=== PATIENT | male | born 1990 | race Caucasian/White ===

== ENCOUNTER 2020-09-03 07:45 | Emergency (ER) | payer SELFPAY ==
[2020-09-03 07:49] VITALS: BP 141/89; PULSE 82; RESP 18; TEMP 36.4; O2SAT 95; BMI 24.3
--- NOTE | 2020-09-03 07:55 | ED_ITS ---
HPI - Dental/Oral General: Chief complaint: Dental/Oral Stated complaint: facial swelling , dental pain Time Seen by Provider: 09/03/20 07:55 History of Present Illness: HPI Narrative: Patient is a 29-year-old male comes to the ED with dental pain. Pain started approximately 3 days ago. MD Complaint: tooth pain Location: Tooth # (13) Onset (ago): day(s) (3 days ago) Duration: constant Severity: moderate Severity scale (1-10): 8 Relieving factors: NSAIDs Exacerbating factors: chewing, cold and heat Context: history of dental caries and poor dental care Associated symptoms: Denies fever(s) or odynophagia Treatment prior to arrival: oral analgesic Review of Systems Const: Denies: fever(s), chills or fatigue Eyes: Denies: change in vision or eye discomfort ENMT: Reports: dental pain; Denies: throat pain, odynophagia, nasal discharge or nasal congestion Card: Denies: chest pain, palpitations, edema, swelling of feet/ankles, dyspnea on exertion or orthopnea Resp: Denies: dyspnea, productive cough or non-productive cough GI: Denies: abdominal pain, nausea, vomiting, diarrhea, constipation or hematochezia : Denies: flank pain, difficulty urinating, dysuria or hematuria Musc: Denies: neck pain, back pain or extremity swelling Skin/Breast: Denies: rash or new lesions Neuro: Denies: headache(s), numbness in extremities or weakness in extremities Physical Exam Const: COMMON NORMALS: no acute distress, patient oriented x3 and alert GENERAL APPEARANCE: cooperative and comfortable HENMT: COMMON NORMALS: normocephalic HEAD & SCALP: normocephalic FACE & SINUS: edema on the left maxilla (mild swelling) MOUTH: Normal oral and palatal mucosa present TEETH & GINGIVA: Yes caries (Patient has extensive dental decay throughout mouth.) and Yes poor dentition THROAT: posterior oropharynx normal and uvula midline Neck/C-Spine: COMMON NORMALS: supple GENERAL: Yes normal visual inspection Resp: COMMON NORMALS: normal respiratory effort, No retractions, No use of accessory muscles and clear to auscultation bilaterally AUSCULTATION: clear to auscultation bilaterally Cardio: COMMON NORMALS: regular rate, regular rhythm, S1 normal heart sound present, S2 normal heart sound present, No gallops present (Cardio), No clicks present (Cardio), No murmurs present (Cardio) and Peripheral pulses 2+ through out RATE: regular rate RHYTHM: regular rhythm HEART SOUNDS: S1 normal heart sound present and S2 normal heart sound present PERIPHERAL PULSES: Peripheral pulses 2+ throughout GI: COMMON NORMALS: Normal to inspection, nondistended, normoactive bowel sounds present, Soft to palpation, non-tender and no masses PALPATION: Yes Soft to palpation : COMMON NORMALS: Yes no CVA tenderness BLADDER/KIDNEY EXAM: Yes no CVA tenderness Back/Pelvis: COMMON NORMALS: no CVA tenderness Extremity: COMMON NORMALS: normal to inspection Neuro: COMMON NORMALS: patient oriented x3 and moves all extremities SENSORIUM/ORIENTATION: Yes alert Skin: GENERAL SKIN EXAM: dry skin Course Vital Signs: Vital signs: Vital Signs Temperature 97.5 F L 09/03/20 07:49 Pulse Rate 82 09/03/20 07:49 Respiratory Rate 18 09/03/20 07:49 Blood Pressure 141/89 09/03/20 07:49 Pulse Oximetry 95 09/03/20 07:49 MDM - Dental/Oral MDM Narrative: Medical decision making narrative: Patient is a 29-year-old male comes to the ED with dental pain. Physical exam shows extensive dental caries throughout mouth. Very poor dental health. Some mild swelling on the left left maxillary region of face. Patient was discharged with a prescription of clindamycin and ibuprofen 800 mg. He was told to contact his dentist to set up an appointment for further evaluation. Return to ED precautions given. Patient understood and agree with plan. Discharge Plan Discharge Patient Disposition: Home Clinical Impression: Pain due to dental caries Condition: Stable Prescriptions: New clindamycin HCl 150 mg capsule 300 mg PO QID 7 Days Qty: 56 RF: 0 ibuprofen 800 mg tablet 800 mg PO Q8H PRN (Reason: pain) Qty: 30 RF: 0 Discharge Orders: Discharge Order (Routine); Ordered 09/03/20 Ordered By: Winston Hernandez Referrals: Jazzy East FNP[facility] [Family Provider] - Discharge Diet: Regular Discharge Activity: Resume usual activity Patient Instructions: Dental Caries (ED) Activity Restrictions/Additional Instructions: Follow-up with medical provider as directed. Contact dentist to set up an appointment for further management of dental pain. Take medications as prescribed. Return to the ER or your medical provider if condition worsens. Please read and understand discharge instructions. If any questions, please ask. Coding Level of Care Code ED Rock Duster for Chg Fwd Exam Comprehensive
--- NOTE | 2020-09-03 08:30 | PC.NURSE ---
[place] tablet sent home with patient to take later.
[2020-09-03 08:38] VITALS: PULSE 76; RESP 20; O2SAT 98
== END 2020-09-03 08:39 | disposition home or self-care (01) ==
LOC: ER 08:17
PROVIDERS: Emergency Provider Physician Assistant; Family Provider Nurse Practitioner
DX: K02.9 Dental caries, unspecified (principal)
CPT/HCPCS: 12345; 99281; 99282

== ENCOUNTER 2023-04-05 20:05 | Emergency (ER) | payer SELFPAY ==
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
[2023-04-05 20:27] VITALS: BP 138/85; PULSE 88; RESP 18; TEMP 36.6; O2SAT 95; BMI 23.8
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
--- NOTE | 2023-04-06 07:50 | DCPLANNER ---
Addendum entered by Melvina Coello 04/13/23 10:08: Patient had a follow up appointment scheduled with ortho - patient did attend appointment. Addendum entered by Melvina Coello 04/12/23 10:31: Patient has a follow up appointment scheduled for Wednesday, April 12, 2023 at 3:30 with Kelvin Pinon at ortho. Addendum entered by Melvina Coello 04/06/23 11:04: manager social work received the following message from the ortho clinic regarding follow up appointment: attempt made to contact patient - left vm and mailed letter to call our clinic to schedule w/ dr reed *ortho clinic - please discuss self pay copay and Finacial assistance with patient when they call back to schedule* Original Note: manager social work had message to schedule a follow up appointment for patient with ortho. manager social work sent patients information to the front office staff at ortho. Patients information will be printed and reviewed. Clinic will call patient with appointment information.
== END 2023-04-05 20:56 | disposition home or self-care (01) ==
PROVIDERS: Emergency Provider Nurse Practitioner Family; PCP Nurse Practitioner
DX: S43.101A Unspecified dislocation of right acromioclavicular joint, initial encounter (principal); V18.0XXA Pedal cycle driver injured in noncollision transport accident in nontraffic accident, initial encounter
CPT/HCPCS: 73030; 99283